=== PATIENT | female | born 1950 | race Hispanic/Latino ===

== ENCOUNTER 2018-01-26 11:27 | Outpatient (CLI) | payer MEDICARE ==
--- NOTE | 2018-01-27 08:18 | Vascular Lab Report ---
LOWER EXTREMITY ARTERIAL PHYSIOLOGIC STUDY: REASON FOR EXAM: Peripheral arterial disease. COMMENTS ON THE RIGHT: Ankle brachial index is 1.18. This value is normal. Toe brachial index is 1.04. This value is normal. Wound healing is likely. Pulse volume recording at the level of the ankle is normal. Exercise testing was not done. COMMENTS ON THE LEFT: Ankle brachial index is 1.23. This value is normal. Toe brachial index is 1.08. This value is normal. Wound healing is likely. Pulse volume recording at the level of the ankle is normal. Exercise testing was not done. IMPRESSION: RIGHT: No hemodynamically significant arterial disease. LEFT:No hemodynamically significant arterial disease.
== END 2018-01-26 11:28 | disposition home or self-care (01) ==
LOC: VAS 11:27
PROVIDERS: ATTEND Internal Medicine Endocrinology, Diabetes & Metabolism
DX: M79.606 Pain in leg, unspecified (principal); I73.9 Peripheral vascular disease, unspecified
CPT/HCPCS: 93922